=== PATIENT | female | born 1995 | race Caucasian/White ===

== ENCOUNTER 2020-10-17 04:30 | Day surgery (SDC) | payer OTHER ==
[2020-10-16 17:14] VITALS: BMI 24.2
[2020-10-17] MEDS ORDERED: oxyCODONE HCL 5 MG TABLET PO PRN (07:29)
[2020-10-17] MEDS ORDERED: LACTATED RINGERS SOLUTION 1,000 ML IV SCH (07:30)
[2020-10-17] MEDS ORDERED: PROPOFOL 20 ML ONE (08:03)
[2020-10-17] MEDS ORDERED: MIDAZOLAM HCL 2 MG/2 ML SINGLE DOSE VIAL ONE (08:03)
[2020-10-17] MEDS ORDERED: KETOROLAC TROMETHAMINE 30 MG/1 ML VIAL ONE (09:08)
[2020-10-17] MEDS ORDERED: DEXAMETHASONE SOD PHOSPHATE 4 MG/1 ML VIAL ONE (09:08)
[2020-10-17 14:45] VITALS: BP 117/66; PULSE 78; TEMP 97.8
== END 2020-10-17 14:30 | disposition home or self-care (01) ==
LOC: JASU-SURG 04:30
PROVIDERS: ATTEND Obstetrics & Gynecology Maternal & Fetal Medicine
PROC: 10A07ZZ Abortion of Products of Conception, Via Natural or Artificial Opening (ICD-10-PCS; principal; 2020-10-17 09:00)
DX: Z33.2 Encounter for elective termination of pregnancy (principal); O36.22X0 Maternal care for hydrops fetalis, second trimester, not applicable or unspecified; Z3A.15 15 weeks gestation of pregnancy
CPT/HCPCS: 86850; 86900; 86901; 88305-TC; 94760

== ENCOUNTER 2021-08-25 07:35 | Inpatient (IN) | payer OTHER ==
[2021-08-25 08:36] LABS: INR 0.93 (0.83-1.09); PROTHROMBIN TIME (PATIENT) 10.7 SEC (9.7-13.0)
[2021-08-25 08:38] LABS: BASO % 0.3 % (0-2.0); EOS % 1.3 % (0-4.5); HEMATOCRIT 32.5 % (32.4-45.2); LYMPH % 16.3 % (8-40); MCH 29.6 pg (25.7-33.7); MCHC 33.7 g/dl (32.0-36.0); MEAN CELL VOLUME 87.8 fl (80-96); MEAN PLT VOLUME 11.1 fl (7.5-11.1); MONO % 8.3 % (3.8-10.2); NEUT % 73.8 % (42.8-82.8); PLATELET COUNT 193 10^3/uL (134-434); RDW 14.2 % (11.6-15.6); WHITE BLOOD COUNT 7.9 K/mm3 (4.0-10.0)
[2021-08-25 08:39] LABS: ACTIVATED PTT 26.5 SECONDS (25.2-36.5)
[2021-08-25 08:56] LABS: CALCIUM 8.8 mg/dL (8.5-10.1)
[2021-08-25 08:57] LABS: ALBUMIN 2.8 g/dl (3.4-5.0); BLOOD UREA NITROGEN 5.7 mg/dL (7-18)
[2021-08-25 09:00] LABS: CREATININE 0.5 mg/dL (0.55-1.3)
[2021-08-25] MEDS: DEXTROSE 5%-LACTATED RINGERS 1,000 ML IV SCH ×2 (09:00→20:50)
[2021-08-25 09:02] LABS: BILIRUBIN,TOTAL 0.6 mg/dL (0.2-1); TOT PROT 6.3 g/dl (6.4-8.2)
[2021-08-25 10:04] VITALS: BMI 32.3
[2021-08-25] MEDS: MISOPROSTOL 100 MCG TABLET PV SCH ×4 (10:40→22:48)
[2021-08-25] MEDS ORDERED: morphine SULFATE 4 MG/ML VIAL IVPUSH ONE (19:34)
[2021-08-25] MEDS ORDERED: FENTANYL/BUPIVACAINE/NS/PF - PCEA - 50 ML DISP.SYRIN EP ONE (21:35)
[2021-08-25] MEDS ORDERED: SODIUM CHLORIDE 1,000 ML IV STA (21:46)
[2021-08-25] MEDS ORDERED: BUPIVACAINE HCL/PF 0.25% (2.5MG/ML) 10 ML VIAL ONE (21:51)
[2021-08-25] MEDS ORDERED: LIDOCAINE HCL 1% PRESERVATIVE FREE - 30ML VIAL ONE (23:02)
[2021-08-25] MEDS ORDERED: OXYTOCIN 20 UNITS in 0.9% NS 20 UNIT/1,000 ML INFUS.BAG IV ONE (23:02)
[2021-08-25] MEDS ORDERED: NALOXONE HCL 0.4 MG/ML VIAL IVPUSH PRN (23:07)
[2021-08-25] MEDS ORDERED: FENTANYL/BUPIVACAINE/NS/PF - PCEA - 50 ML DISP.SYRIN EP SCH (23:15)
[2021-08-26 02:08] LABS: CORD BASE EXCESS -3.6 mmol/L (0-2); CORD PCO2 46.8 mmHg (30-78); CORD pH 7.309 (7.14-7.44)
[2021-08-26] MEDS ORDERED: IBUPROFEN 600 MG TABLET (FP) PO PRN (02:37)
[2021-08-26] MEDS ORDERED: BENZOCAINE 20% 57 GM BOTTLE TP PRN (02:37)
[2021-08-26] MEDS ORDERED: ACETAMINOPHEN 325 MG TABLET (FP) PO PRN (02:37)
[2021-08-26] MEDS ORDERED: WITCH HAZEL 50% (TUCKS) 40 PAD/JAR PAD TP PRN (02:37)
[2021-08-26] MEDS ORDERED: BENZOCAINE 28 GM HEMORRHOIDAL OINTMENT TP PRN (02:37)
[2021-08-26] MEDS ORDERED: OXYTOCIN 20 UNITS in 0.9% NS 20 UNIT/1,000 ML INFUS.BAG IV SCH (02:45)
[2021-08-26] MEDS: MISOPROSTOL 100 MCG TABLET PV SCH (03:13)
[2021-08-26] MEDS: FERROUS SO4 325 MG TABLET (FP) PO SCH ×3 (09:13→17:25)
[2021-08-26] MEDS: PRENATAL VITAMINS W/ FOLIC ACID TABLET (FP) PO SCH (09:13)
[2021-08-27 07:15] LABS: BASO % 0.3 % (0-2.0); EOS % 0.9 % (0-4.5); HEMATOCRIT 26.6 % (32.4-45.2); HEMOGLOBIN 9.3 GM/dL (10.7-15.3); LYMPH % 17.3 % (8-40); MCH 30.6 pg (25.7-33.7); MCHC 34.8 g/dl (32.0-36.0); MEAN PLT VOLUME 11.2 fl (7.5-11.1); MONO % 9.1 % (3.8-10.2); NEUT % 72.4 % (42.8-82.8); PLATELET COUNT 164 10^3/uL (134-434); RBC 3.03 M/mm3 (3.60-5.2); RDW 14.2 % (11.6-15.6); WHITE BLOOD COUNT 10.3 K/mm3 (4.0-10.0)
[2021-08-27] MEDS: FERROUS SO4 325 MG TABLET (FP) PO SCH ×3 (07:55→17:31)
[2021-08-27] MEDS: PRENATAL VITAMINS W/ FOLIC ACID TABLET (FP) PO SCH (09:06)
[2021-08-27] MEDS ORDERED: SENNOSIDES/DOCUSATE COMBO (SENNA PLUS) TABLET (UD) PO PRN (22:00)
[2021-08-28 08:53] VITALS: BP 137/90; PULSE 84; TEMP 97.8
[2021-08-28] MEDS: PRENATAL VITAMINS W/ FOLIC ACID TABLET (FP) PO SCH (09:20)
[2021-08-28] MEDS: FERROUS SO4 325 MG TABLET (FP) PO SCH (09:20)
[2021-08-29 00:31] LABS: SYPHILIS W/ RPR CONF NON-REACTIVE (NONREACTIVE)
[2021-08-29 01:00] LABS: HIV INTERPRETATION NEGATIVE (NEGATIVE)
== END 2021-08-28 11:20 | disposition home or self-care (01) | DRG 560 ==
LOC: JLDR 07:35 → J3W 08-26 03:18
PROVIDERS: ADMIT Obstetrics & Gynecology Maternal & Fetal Medicine; ATTEND Obstetrics & Gynecology Maternal & Fetal Medicine
PROC: 10907ZC Drainage of Amniotic Fluid, Therapeutic from Products of Conception, Via Natural or Artificial Opening (ICD-10-PCS; 2021-08-25)
PROC: 3E0P7VZ Introduction of Hormone into Female Reproductive, Via Natural or Artificial Opening (ICD-10-PCS; 2021-08-25)
PROC: 10E0XZZ Delivery of Products of Conception, External Approach (ICD-10-PCS; principal; 2021-08-26)
PROC: 0KQM0ZZ Repair Perineum Muscle, Open Approach (ICD-10-PCS; 2021-08-26)
DX: O13.3 Gestational [pregnancy-induced] hypertension without significant proteinuria, third trimester (principal); O90.81 Anemia of the puerperium; D64.9 Anemia, unspecified; O70.1 Second degree perineal laceration during delivery; Z3A.37 37 weeks gestation of pregnancy; Z37.0 Single live birth; Z87.59 Personal history of other complications of pregnancy, childbirth and the puerperium
CPT/HCPCS: 36415; 36600; 59025; 59409; 80053; 82803; 85025; 85610; 85730; 86762; 86780; 86850; 86900; 86901; 87340; 87389; 88307-TC; C9803-CS; G0463-25; U0003; U0005